=== PATIENT | female | born 1965 | race Caucasian/White ===

== ENCOUNTER → 2024-09-23 | Outpatient (CLI) | payer OTHER, SELFPAY ==
--- NOTE | 2024-09-23 15:15 | XR_ITS ---
Examination: Abdomen sonogram, complete Date and time of exam: September 23, 2024 1527 hours INDICATIONS: Left upper abdominal pain beginning several weeks ago. Technique: Multiple real-time grayscale transabdominal sonographic images of the abdomen have been obtained. Findings: Contracted gallbladder, no gallstones Common bile duct 0.3 cm Pancreatic head 2.9 cm Aorta not enlarged Liver 15.8 cm fatty infiltration no focal liver lesions Normal hepatopedal portal venous oh Patent IVC Right kidney 12.0 cm renal cortex 1.6 cm 7 mm midpole calculus Left kidney 12.0 cm renal cortex 2.0 cm Mild to moderate bilateral renal parenchymal scar formation Spleen 8.8 cm IMPRESSION: Recommend repeating the gallbladder portion the study with fasting Fatty liver 7 mm midpole right renal calculus Mild to moderate bilateral renal parenchymal scar formation No hydronephrosis
== END | disposition home or self-care (01) ==
PROVIDERS: PCP Internal Medicine; Referring Provider Internal Medicine; Visit Provider Internal Medicine
DX: K76.0 Fatty (change of) liver, not elsewhere classified (principal); N28.89 Other specified disorders of kidney and ureter; N20.0 Calculus of kidney
CPT/HCPCS: 76700

== ENCOUNTER 2024-11-17 12:40 | Day surgery (SDC) | payer OTHER, SELFPAY ==
[2024-11-17] VITALS (9 sets, daily range): BP systolic 127–156; BP diastolic 76–92; PULSE 59–84; RESP 10–21; TEMP 36.4–36.6; O2SAT 94–100
[2024-11-17] MEDS: SODIUM CHLORIDE 0.9% 500 ML 500 ML 20 ML IV (14:00)
[2024-11-17] MEDS: BENZOCAINE 20% (Hurricaine) SPRAY 1 DOSE TOP (14:00)
[2024-11-17] MEDS: fentaNYL CIT INJ 50 mCg/ML AMP 2ML (ASD USE ONLY) IV (14:01)
[2024-11-17] MEDS: DiphenhydrAMINE INJ 50 MG/ML VIAL 25 MG IV (14:01)
[2024-11-17] MEDS: MIDAZOLAM INJ 1 MG/ML VIAL 2 ML (ASD USE ONLY) 2 MG IV (14:04)
== END 2024-11-17 14:55 | disposition home or self-care (01) ==
PROVIDERS: PCP Internal Medicine; Referring Provider Specialist; Visit Provider Specialist
PROC: (CPT 43239; principal; 2024-11-17 14:00)
DX: K22.2 Esophageal obstruction (principal); K29.70 Gastritis, unspecified, without bleeding; K20.90 Esophagitis, unspecified without bleeding; K29.50 Unspecified chronic gastritis without bleeding; K31.89 Other diseases of stomach and duodenum
CPT/HCPCS: 43248; 43239; C1769; J1200; J2250; J3010; J7040; A9270

== ENCOUNTER 2025-02-20 13:51 | Emergency (ER) | payer OTHER, SELFPAY ==
[2025-02-20 13:52] VITALS: BMI 28.3
[2025-02-20 14:43] VITALS: BP 145/84; PULSE 74; RESP 20; TEMP 36.8; O2SAT 97
--- NOTE | 2025-02-20 15:05 | PD.EDFALL ---
ED Fall Injury RME/HPI General Chief Complaint: Fall Stated Complaint: FALL, INJURY TO LEFT WRIST AND ELBOW TODAY Time Seen by Provider: 02/20/25 15:04 Arrival date/time: 02/20/25 13:51 Limitations: no limitations RME / HPI RME / HPI Narrative: Patient is a 60-year-old female with a history of hypertension who states she had a ground-level, mechanical, fall in her kitchen today at 1:00 PM. She has left forearm and wrist pain. She has no open wounds or gross deformities. She has discomfort with range of motion although she can pronate and supinate. She denies any head strike. Has no spine injury. She has no other acute complaints. Related Data Home Medications ?Medication ?Instructions ?Recorded ?Confirmed metoprolol succinate 100 mg 100 mg PO QDAY High Blood Pressure 10/30/13 11/17/24 tablet,extended release 24 hr ##0 (Toprol XL) atorvastatin 20 mg tablet 20 mg PO QDAY 10/04/21 11/17/24 lorazepam 0.5 mg tablet 0.5 mg PO HS PRN anxiety 10/04/21 11/17/24 multivitamin 1 tab PO QDAY 10/04/21 11/17/24 duloxetine 60 mg capsule,delayed 60 mg PO QDAY 11/23/21 11/17/24 release albuterol sulfate 90 mcg/actuation 2 inh inhalation Q4H PRN shortness 11/17/24 11/17/24 aerosol inhaler (Ventolin HFA) of breath or wheezing amlodipine 2.5 mg tablet 2.5 mg PO BID 11/17/24 11/17/24 pantoprazole 40 mg tablet,delayed 40 mg PO BID 11/17/24 11/17/24 release trazodone 50 mg tablet 50 mg PO HS 11/17/24 11/17/24 Allergies Allergy/AdvReac Type Severity Reaction Status Date / Time aspirin AdvReac Severe STOMACH Verified 02/20/25 13:55 PAIN AND VOMITING codeine AdvReac Severe STOMACH Verified 02/20/25 13:55 PAIN AND VOMITING tetracycline AdvReac Severe JUST Verified 02/20/25 13:55 DON'T FEEL RIGHT Review of Systems Review of Systems Systems Reviewed: All systems reviewed, normal except as documented ED Exam General Limitations: Present no limitations General appearance: Present alert and in no apparent distress Head Head exam: Present atraumatic Eye Eye exam: Present normal appearance, PERRL and EOMI ENT ENT exam: Present normal exam, normal oropharynx and mucous membranes moist Neck Neck exam: Present normal inspection, full ROM and trachea midline Chest Chest inspection: Present normal inspection and symmetric chest wall rise Respiratory Respiratory exam: Present normal lung sounds bilaterally Cardiovascular Cardiovascular exam: Present regular rate, normal rhythm and normal heart sounds Abdominal Exam Abdominal exam: Present soft and normal bowel sounds Extremities Exam Extremities exam: Present full ROM, tenderness and other (Patient is mildly edematous at the distal left wrist. She is tender to palpation. There is no crepitus or gross deformities.) Back Exam Back exam: Present normal inspection and full ROM Neurological Exam Neurological exam: Present alert, oriented X3 and CN II-XII intact Psychiatric Psychiatric exam: Present normal affect and normal mood Skin Skin exam: Present warm, dry, intact and normal color Course Quality Measures none Orders Category Date Time Status Splint / Immobilizer STAT Care 02/20/25 16:30 Active XR elbow comp LT min 3V Stat Exams 02/20/25 15:07 Completed XR hand comp LT min 3V Stat Exams 02/20/25 15:07 Completed XR wrist comp LT min 3V Stat Exams 02/20/25 15:07 Completed HYDROcodone*/APAP 5/325 [[place] 5/325] Med 02/20/25 15:07 Discontinued 1 tab PO X1 ONE Vital Signs Vital signs: Vital Signs Temperature 98.2 F 02/20/25 14:43 Pulse Rate 74 02/20/25 14:43 Respiratory Rate 20 02/20/25 14:43 Blood Pressure 145/84 H 02/20/25 14:43 Pulse Oximetry (%) 97 02/20/25 14:43 Oxygen Delivery Method Room Air 02/20/25 14:43 Fall MDM Narrative MDM Narrative:: Patient is a 60-year-old female with a history of hypertension who states she had a ground-level, mechanical, fall in her kitchen today at 1:00 PM. She has left forearm and wrist pain. She has no open wounds or gross deformities. She has discomfort with range of motion although she can pronate and supinate. She denies any head strike. Has no spine injury. She has no other acute complaints. On exam patient is nontoxic-appearing. Vital signs are stable. She has distal perfusion to the left hand. She has mild edema although there is no crepitus or open wounds. There is no gross deformities. Plain films obtained of the left elbow, wrist, and hand which revealed no acute osseous injury. Patient was placed in a volar splint for comfort. She will continue ibuprofen and Tylenol for comfort. Return to the emergency room at anytime for any worsening changes. Patient data External records reviewed:: None Clinical information provided by:: patient and family Social determinants that could affect healthcare access:: none Patient has the following chronic illnesses:: Hypertension How is presenting disease/condition affected by chronic disease/condition?: uneffected by Evaluation data The following diagnostics were reviewed and interpreted by me:: radiology exam(s) (Plain films are unremarkable for any acute osseous injury.) Lab and/or radiology exams considered but not ordered:: n/a Interpretation Summary: No acute fracture Medications / Prescriptions Medications or Prescriptions considered but not ordered:: n/a Medication administrations:: Medication Administration History Discontinued Medications Hydrocodone Bitart/Acetaminophen (Hydrocodone/[place] 5/325 Tablet) 1 tab PO X1 ONE Stop: 02/20/25 15:08 Last Admin: 02/20/25 16:22 Dose: 1 tab Documented By: [facility] See above Consultations Consultation(s) initiated? (list below): No Diagnosis Fall Differential Diagnosis: fracture of wrist and concussion with loss of consciousness Most likely diagnosis given after review of the tests above:: Arm sprain Admission Indicated Admission indicated?: not indicated Admission Request Was there a request for admission?: No Disposition Plan Disposition Plan: Discharge Discharge Attestation Discharge Attestation: The patient and all family members were given an opportunity to ask questions and understood the discharge instructions. Discharge instructions specifically effects, indications for sooner follow up or return to the emergency department, and the expected course of current diagnosis. Patient condition: Stable Discharge Plan Plan Patient Disposition: HOME (Self Care) Patient condition on transfer: Stable Prescriptions/Referrals Prescriptions/Med Rec: No Action metoprolol succinate [Toprol XL] 100 MG tablet extended release 24 hr 100 mg PO QDAY Qty: 0 atorvastatin 20 mg tablet 20 mg PO QDAY Patient Comments: TAKE 1 TABLET BY MOUTH EVERY DAY multivitamin Tablet 1 tab PO QDAY lorazepam 0.5 mg tablet 0.5 mg PO HS PRN (Reason: anxiety) Patient Comments: TAKE 1 TABLET BY MOUTH EVERY DAY duloxetine 60 mg Capsule,Delayed Release(/Ec) 60 mg PO QDAY trazodone 50 mg tablet 50 mg PO HS Patient Comments: TAKE 1 TABLET BY MOUTH AT BEDTIME amlodipine 2.5 mg tablet 2.5 mg PO BID Patient Comments: TAKE 1 TABLET BY MOUTH TWICE A DAY pantoprazole 40 mg tablet,delayed release (DR/EC) 40 mg PO BID Patient Comments: TAKE 1 TABLET BY MOUTH TWICE A DAY albuterol sulfate [Ventolin HFA] 90 mcg/actuation HFA aerosol inhaler 2 inh INHALATION Q4H PRN (Reason: shortness of breath or wheezing) Patient Comments: TAKE 2 PUFFS BY MOUTH EVERY 4 HOURS NEEDED Problem List Clinical Impression: Arm sprain Patient/Caregiver Discharge Instructions Additional Instructions: - Use the provided splint for comfort. - Use Tylenol and ibuprofen as needed for comfort. - Return here at anytime for any worsening or emergent changes. Print Language: Bahamian Stand Alone Forms: [facility] Award Info., Patient Portal Info Letter
--- NOTE | 2025-02-20 15:07 | XR_ITS ---
Examination: Wrist, left 3 views Technique: Wrist AP, oblique, lateral 3 views Date and time of exam: February 20, 2025 1555 hours INDICATIONS: Patient fell today with into the wrist, wrist pain FINDINGS: No fracture or dislocation. No foreign body IMPRESSION: No fracture or dislocation
--- NOTE | 2025-02-20 15:07 | XR_ITS ---
Examination: Hand, left 3 views Technique: Hand AP, oblique, lateral 3 views Date and time of exam: February 20, 2025 1855 hours INDICATIONS: Patient fell today with injury to left hand, left hand pain FINDINGS: No acute fracture No dislocation No foreign body IMPRESSION: No acute fracture
--- NOTE | 2025-02-20 15:07 | XR_ITS ---
Examination: Left elbow 3 views Technique: Elbow AP, oblique, lateral 3 views Exam date and time: February 20, 2025 1555 hours INDICATIONS: Patient fell today with injury to the elbow, elbow pain. FINDINGS: No fracture or dislocation. No foreign body IMPRESSION: No fracture or dislocation.
[2025-02-20] MEDS: HYDROcodone/APAP 5/325 TABLET 1 TAB PO (16:22)
== END 2025-02-20 17:11 | disposition home or self-care (01) ==
LOC: SERX 16:54
PROVIDERS: Emergency Provider Emergency Medicine
DX: S63.92XA Sprain of unspecified part of left wrist and hand, initial encounter (principal); S59.902A Unspecified injury of left elbow, initial encounter; W18.30XA Fall on same level, unspecified, initial encounter; Y92.010 Kitchen of single-family (private) house as the place of occurrence of the external cause
CPT/HCPCS: 29125; 73080; 73110; 73130; 99283; A9270